=== PATIENT | female | born 1945 | race Caucasian/White ===

== ENCOUNTER → 2016-08-08 | Outpatient (CLI) | payer OTHER, BC ==
[~2016-08-08] MED LIST: ALBU1AER9 INH; ANAS1TAB19 PO; ANAS1TAB6 PO; BENZ-57 PO; CALC1CHW71 PO; CLR10 PO; FLUO0.05 TOP; HYDR0.75 PO; LEVO25TA PO; LEVO25TA5 PO; LEVO50TA6 PO; OYST500T47 PO; TRIA0.1C20 TOP
--- NOTE | 2016-08-08 16:02 | DIAGNOSTIC IMAGING REPORT ---
CHEST 2 VIEWS ROUTINE CLINICAL HISTORY: Cough variant asthma. COMPARISON STUDY: Chest radiograph September 12, 2014. FINDINGS: No pneumothorax or pleural effusion is present. There is no consolidation or evidence of pulmonary edema. Cardiomediastinal silhouette is normal. Left breast clips are incidentally noted. IMPRESSION: No acute cardiopulmonary findings. Electronically signed by: Shawn Markham M.D. 08/08/2016 4:00 PM Dictated Date/Time: 08/08/2016 3:59 PM
== END | disposition home or self-care (01) ==
LOC: C.RADBC 15:38
PROVIDERS: ATTEND Internal Medicine
DX: J45.991 Cough variant asthma (principal); E03.9 Hypothyroidism, unspecified

== ENCOUNTER → 2017-03-09 | Outpatient (CLI) | payer OTHER, BC | END | disposition home or self-care (01) | LOC: C.MAMM 15:23 | PROVIDERS: ATTEND Nurse Practitioner Family | DX: M85.851 Other specified disorders of bone density and structure, right thigh (principal); M85.852 Other specified disorders of bone density and structure, left thigh; M85.88 Other specified disorders of bone density and structure, other site; C50.912 Malignant neoplasm of unspecified site of left female breast ==

== ENCOUNTER → 2017-03-18 | Day surgery (SDC) | payer OTHER, BC ==
[2017-03-09 08:34] VITALS: Ht 167.6 cm; Wt 73.6 kg
[~2017-03-18] VITALS: Ht 167.6 cm; Wt 73.6 kg
[~2017-03-18] MED LIST changes: +LIDOCAINE HCL 2% 2 ML VIAL (20MG/ML) ONE; +PROPOFOL IV EMULSION 10 MG/ML 20 ML VIAL IV ONE; +SODIUM CHLORIDE 0.9% 500ML 500 ML IV ONE
--- NOTE | 2017-03-18 12:41 | Endo History and Physical ---
History & Physical Date of Service: Mar 18, 2017. Chief Complaint: Screening Referring Physician: Dr. Polo History of Present Illness 71 yo CF who presents for screening colonoscopy. Past Medical History Osteoporosis, Asthma, Cancer, High Cholesterol, Hypertension, Thyroid Disease, Chronic Steroid Use Past Surgical History Hx Cardiac Surgery: No Hx Internal Defibrillator: No Hx Pacemaker: No Hx Abdominal Surgery: Yes (TUBAL LIGATION, HYSTERECTOMY) Hx of Implantable Prosthesis: No Hx Post-Op Nausea and Vomiting: No Hx Cancer Surgery: Yes (LEFT LUMPECTOMY) Hx Thoracic Surgery: No Hx Orthopedic: No Hx Urinary Tract Surgery: Yes (D&C,laparoscopy) Family History Polyp Social History Smoking Status: Never Smoker Hx Substance Use: No Hx Alcohol Use: No Allergies Coded Allergies: Milk Protein Extract (Unverified Allergy, Severe, SHORTNESS OF BREATH, ) cough, increased mucus, and loss of voice Salmeterol (Unverified Allergy, Severe, SHORTNESS OF BREATH, 03/09/17) cough, increased mucus, and loss of voice Adhesives (Verified Allergy, Unknown, REDNESS,RASH-WITH BANDAIDS-CAN USE RUBBER BANDS, BLOW UP BAL, 03/09/17) Molds & Smuts (Verified Allergy, Unknown, ASTHMA SYMPTOMS, 03/09/17) Fluticasone (Unverified Adverse Reaction, Intermediate, SHORTNESS OF BREATH, 03/09/17) cough, loss of voice, increased mucus Uncoded Allergies: PERFUMES (Allergy, Unknown, ASTHMA SYMPTOMS, 08/16/14) Current Medications Reported Home Medications Medications Dose Route/Sig Max Daily Dose Days Date Category Anastrozole 1 Mg Tab 1 Tab PO QAM 90 03/09/17 Reported Levothyroxine Sodium 50 Mcg Tab 1 Tab PO Q2D 90 03/09/17 Reported Levothyroxine Sodium 25 Mcg Tab 1 Tab PO Q2D 90 03/09/17 Reported Calcium Chews (Calcium Carbonate-Cholecalcife) 1 Chw Chw 2 Dose PO QPM 03/09/17 Reported Lidex 0.05% (Fluocinonide) Cr 1 Appln TOP BID PRN 10 06/14/15 Reported Proair Hfa (Albuterol Sulfate) 108 Mcg/ Aer 2 Puffs INH Q4H PRN 08/16/14 Reported Vital Signs Weight (Kilograms): 73.64 Height (Feet): 5 Height (Inches): 6 Physical Exam General Appearance: WD/WN, no apparent distress Respiratory/Chest: Auscultation: breath sounds normal Cardiovascular: Heart Auscultation: RRR Abdomen: Bowel Sounds: normal Inspection & Palpation: soft, non-distended, no tenderness, guarding & rebound Assessment and Plan Assessment: 71 yo CF who presents for screening colonoscopy. Plan: Proceed with colonoscopy.
[2017-03-18 14:10] VITALS: BP 119/51; PULSE 63; O2SAT 100
--- NOTE | 2017-03-18 14:13 | Anesthesiology Progress Note ---
Anesthesia Post Op Note Date & Time Mar 18, 2017 at 14:13 Vital Signs Pain Intensity: 0 Vital Signs Past 12 Hours Date Time Temp Pulse Resp B/P (MAP) Pulse Ox O2 Delivery O2 Flow Rate FiO2 03/18/17 14:10 63 16 119/51 (73) 100 Room Air 03/18/17 13:55 64 16 118/52 (74) 98 Room Air 03/18/17 13:40 69 16 112/48 (69) 97 Room Air 03/18/17 12:55 36.9 71 18 152/73 (99) 96 Room Air Notes Mental Status: alert / awake / arousable, participated in evaluation Pt Amnestic to Procedure: Yes Nausea / Vomiting: adequately controlled Pain: adequately controlled Airway Patency, RR, SpO2: stable & adequate BP & HR: stable & adequate Hydration State: stable & adequate Anesthetic Complications: no major complications apparent
--- NOTE | 2017-03-18 14:34 | Discharge Instructions ---
Endoscopy Patient Instructions Date / Procedure(s) Performed Mar 18, 2017. Colonoscopy Allergy Information Coded Allergies: Milk Protein Extract (Verified Allergy, Severe, SHORTNESS OF BREATH, ) cough, increased mucus, and loss of voice Salmeterol (Verified Allergy, Severe, SHORTNESS OF BREATH, 03/18/17) cough, increased mucus, and loss of voice Adhesives (Verified Allergy, Unknown, REDNESS,RASH-WITH BANDAIDS-CAN USE RUBBER BANDS, BLOW UP BAL, 03/18/17) Molds & Smuts (Verified Allergy, Unknown, ASTHMA SYMPTOMS, 03/18/17) Fluticasone (Verified Adverse Reaction, Intermediate, SHORTNESS OF BREATH , 03/18/17) cough, loss of voice, increased mucus Uncoded Allergies: PERFUMES (Allergy, Unknown, ASTHMA SYMPTOMS, 08/16/14) Discharge Date / Findings Mar 18, 2017. Diverticulosis Internal hemorrhoids Colon polyp Rectal polyps Medication Instructions OK to resume all medications today as prescribed Reported Home Medications Medications Dose Route/Sig Max Daily Dose Days Date Category Hydromet (Hydrocodone Bit/Homatropine Methylb) 1 Ml Syrp 5 Ml PO QID PRN 9 03/18/17 Reported Tessalon Perles (Benzonatate) 200 Mg Cap 200 Mg PO TID PRN 03/18/17 Reported Claritin (Loratadine) 10 Mg Tab 10 Mg PO DAILY 03/18/17 Reported Anastrozole 1 Mg Tab 1 Tab PO QAM 90 03/09/17 Reported Levothyroxine Sodium 50 Mcg Tab 1 Tab PO Q2D 90 03/09/17 Reported Levothyroxine Sodium 25 Mcg Tab 1 Tab PO Q2D 90 03/09/17 Reported Calcium Chews (Calcium Carbonate-Cholecalcife) 1 Chw Chw 2 Dose PO QPM 03/09/17 Reported Lidex 0.05% (Fluocinonide) Cr 1 Appln TOP BID PRN 10 06/14/15 Reported Proair Hfa (Albuterol Sulfate) 108 Mcg/ Aer 2 Puffs INH Q4H PRN 08/16/14 Reported Provider Instructions Activity Restrictions - No exercising or heavy lifting for 24 hours. - Do not drink alcohol the day of the procedure. - Do not drive a car or operate machinery until the day after the procedure. - Do not make any important decisions or sign important papers in 24 hours after the procedure. Following Day: - Return to full activity which may include returning to work/school. Diet Start your diet with liquids and light foods (jello, soup, juice, toast). Then eat your usual diet if not nauseated. Treatment For Common After Affects For mild abdominal pain, bloating, or excessive gas: - Rest - Eat lightly - Lie on right side Follow-Up Information Follow-up with DR. MAXIMILIAN BAEZ as scheduled Anesthesia Information What You Should Know You have had a procedure that required some medicine to reduce anxiety and discomfort. This treatment is called moderate sedation. After receiving the treatment, you may be sleepy, but you will be able to breathe on your own. The effects of the treatment may last for several hours. Follow these instructions along with Activity/Diet recommendations noted above: * Do NOT do anything where dizziness or clumsiness would be dangerous. * Rest quietly at home today, then you can be up and about tomorrow. * Have a responsible person stay with you the rest of today. * You may have had an I.V. today. If so, you may take the dressing off later today. Recommendations Call your doctor if: * Trouble breathing * Continuous vomiting for more than 24 hours * Temperature above 101 degrees * Severe abdominal pain or bloating * Pain not relieved by pain medicine ordered * There is increased drainage or redness from any incision * A large amount of rectal bleeding greater than 2-3 tablespoons. (If you had a polyp/s removed or have hemorrhoids, a small amount of blood - from the rectum is to be expected.) * You have any unanswered questions or concerns. IN THE EVENT OF A SERIOUS EMERGENCY, GO TO THE NEAREST EMERGENCY ROOM Your discharge instructions were prepared by provider Ethan Andrade. Patient Instructions Signature Page Kate Arteaga Patient (or Guardian) Signature/Date: I have read and understand the instructions given to me by my caregivers. Caregiver/RN/Doctor Signature/Date: The above-named patient and/or guardian has received patient instructions on this date. + Original Patient Signature Page (only) stays with chart. Please make copy for patient.
--- NOTE | 2017-03-19 00:15 | GI REPORT ---
Procedure Date: 03/18/2017 12:47 PM Procedure: Colonoscopy Indications: Screening for colorectal malignant neoplasm Medicines: Monitored Anesthesia Care Complications: No immediate complications. Estimated Blood Loss: Estimated blood loss: none. Procedure: Pre-Anesthesia Assessment: - Prior to the procedure, a History and Physical was performed, and patient medications and allergies were reviewed. The patient's tolerance of previous anesthesia was also reviewed. The risks and benefits of the procedure and the sedation options and risks were discussed with the patient. All questions were answered, and informed consent was obtained. Prior Anticoagulants: The patient has taken no previous anticoagulant or antiplatelet agents. ASA Grade Assessment: II - A patient with mild systemic disease. After reviewing the risks and benefits, the patient was deemed in satisfactory condition to undergo the procedure. After I obtained informed consent, the scope was passed under direct vision. Throughout the procedure, the patient's blood pressure, pulse, and oxygen saturations were monitored continuously. The Scope was introduced through the anus and advanced to the terminal ileum. The colonoscopy was performed without difficulty. The patient tolerated the procedure well. The quality of the bowel preparation was good. The terminal ileum, ileocecal valve, appendiceal orifice, and rectum were photographed. Findings: Three sessile polyps were found in the rectum and in the descending colon. The polyps were 4 to 6 mm in size. These polyps were removed with a hot snare. Resection and retrieval were complete. Multiple medium-mouthed diverticula were found in the sigmoid colon. Non-bleeding internal hemorrhoids were found during retroflexion. The hemorrhoids were small. Impression: - Three 4 to 6 mm polyps in the rectum and in the descending colon, removed with a hot snare. Resected and retrieved. - Diverticulosis in the sigmoid colon. - Non-bleeding internal hemorrhoids. Recommendation: - Resume previous diet. - Continue present medications. - Repeat colonoscopy for surveillance based on pathology results. - Return to primary care physician as previously scheduled. Ethan Andrade, DO 03/18/2017 2:28:38 PM This report has been signed electronically. Note Initiated On: 03/18/2017 12:47 PM I attest to the content of the Intraoperative Record and orders documented therein, exceptions below
== END | disposition home or self-care (01) ==
LOC: C.GI 12:19
PROVIDERS: ATTEND Internal Medicine
DX: Z12.11 Encounter for screening for malignant neoplasm of colon (principal); D12.4 Benign neoplasm of descending colon; D12.8 Benign neoplasm of rectum; K57.30 Diverticulosis of large intestine without perforation or abscess without bleeding; K64.8 Other hemorrhoids; J45.909 Unspecified asthma, uncomplicated; E78.00 Pure hypercholesterolemia, unspecified; M81.0 Age-related osteoporosis without current pathological fracture; I10 Essential (primary) hypertension; E07.9 Disorder of thyroid, unspecified; Z79.52 Long term (current) use of systemic steroids; Z79.899 Other long term (current) drug therapy

== ENCOUNTER → 2017-07-02 | Outpatient (CLI) | payer OTHER, BC ==
[2016-05-29 13:25] VITALS: BP 151/74; PULSE 73
[~2017-07-02] MED LIST changes: -ANAS1TAB19 PO; -ANAS1TAB6 PO; +ANAS1TAB7 PO; -BENZ-57 PO; +BENZ200C59 PO; -LEVO25TA PO; -LIDOCAINE HCL 2% 2 ML VIAL (20MG/ML) ONE; -OYST500T47 PO; -PROPOFOL IV EMULSION 10 MG/ML 20 ML VIAL IV ONE; -SODIUM CHLORIDE 0.9% 500ML 500 ML IV ONE; -TRIA0.1C20 TOP
[2017-07-02 13:48] VITALS: BP 133/75; PULSE 72; TEMP 36.9; O2SAT 98
--- NOTE | 2017-07-02 15:08 | Radiation Oncology Follow-Up ---
Radiation Oncology Follow-Up Date of Visit Jul 02, 2017. Reason For Visit Annual follow-up Radiation Completion Date 10/06/14 Diagnosis (1) Breast cancer Status: Resolved Onset Date: 08/21/2014 Permanent Comment: Status post lumpectomy and sentinel lymph node biopsy 2014 Stage pT1a pTN0 M0 estrogen receptor positive. Progesterone receptor negative, HER-2/dana negative Oncotype DX score of 19 Last Edited By: Sabine Fortune on Nov 09, 2014 17:13 Interim History She's been doing well over this past year. She denies any changes to her breast. She is noted no masses or tenderness no change of the axilla. She has had no swelling of her arm. Previously she had a jagging discomfort. This has resolved completely. She is up-to-date on mammography. She continues on Arimidex. She denies side effects. Allergies Coded Allergies: Milk Protein Extract (Verified Allergy, Severe, SHORTNESS OF BREATH, ) cough, increased mucus, and loss of voice Salmeterol (Verified Allergy, Severe, SHORTNESS OF BREATH, 03/18/17) cough, increased mucus, and loss of voice Adhesives (Verified Allergy, Unknown, REDNESS,RASH-WITH BANDAIDS-CAN USE RUBBER BANDS, BLOW UP BAL, 03/18/17) Molds & Smuts (Verified Allergy, Unknown, ASTHMA SYMPTOMS, 03/18/17) Fluticasone (Verified Adverse Reaction, Intermediate, SHORTNESS OF BREATH , 03/18/17) cough, loss of voice, increased mucus Uncoded Allergies: PERFUMES (Allergy, Unknown, ASTHMA SYMPTOMS, 08/16/14) Home Medications Scheduled Anastrozole (Anastrozole), 1 TAB PO QAM Calcium Carbonate-Cholecalcife (Calcium Chews), 2 DOSE PO QPM Levothyroxine Sodium (Levothyroxine Sodium), 1 TAB PO Q2D Levothyroxine Sodium (Levothyroxine Sodium), 1 TAB PO Q2D Loratadine (Claritin), 10 MG PO DAILY Scheduled PRN Albuterol Sulfate (Proair Hfa), 2 PUFFS INH Q4H PRN for PRN Benzonatate (Tessalon Perles), 200 MG PO TID PRN for Cough Fluocinonide 0.05% (Lidex 0.05%), 1 APPLN TOP BID PRN for Itching Review of Systems Gastrointestinal: Symptoms: WNL GI Comments: sl constipation Oral: Symptoms: No Problems Respiratory: Symptoms: Dry Cough Urinary: Symptoms: WNL Skin: Symptoms: No Problems Other Skin Symptoms: noted right breast larger than right noted between breasts redness Breast: Right Upper Arm Measurement: 31.5 Right Mid Arm Measurement: 27.0 Right Wrist Measurement: 16.8 Left Upper Arm Measurement: 30.8 Left Mid Arm Measurement: 25.5 Left Wrist Measurement: 17.0 Arm Dominence: Right Patient Cosmetic Evaluation: Good Staff Cosmetic Evalaluation: Good Cosmetic Comments: right breast larger Physical Exam Vital Signs Date Time Temp Pulse Resp B/P (MAP) Pulse Ox O2 Delivery O2 Flow Rate FiO2 07/02/17 13:48 36.9 72 20 133/75 98 Fatigue: None General Appearance: no apparent distress Eyes: normal inspection, EOMI ENT: normal ENT inspection, hearing grossly normal Neck: no adenopathy, thyroid normal Respiratory/Chest: lungs clear, no respiratory distress, no accessory muscle use Breast: Breast examination reveals well-healed incisions of the left breast. There are no masses or tenderness and no axillary adenopathy. She has no skin retractions or nipple changes. Using the [place] score cosmesis she has a excellent outcome. The right breast showed no masses or tenderness no axillary adenopathy. Cardiovascular: regular rate, rhythm, no gallop, + systolic murmur (1/6 murmur heard best at the aortic area.) Abdomen: non tender, soft, no organomegaly Extremities: no pedal edema Neurologic/Psychiatric: no motor/sensory deficits, alert, normal mood/affect Skin: warm/dry Lymphatic: + pertinent finding (thinning of the skin and team angiomas) Pain Management Patient Reports Pain: No Side: Left Pain Location: None Patient Preferred Pain Scale: 0 - 10 Initial Pain Intensity: 0.0 Pain Management Plan She does not have pain therefore requires no pain management. Imaging Imaging Studies: were reviewed, and pertinent findings noted below Imaging Comments Patient: ESTEFANIA AVILA Med Rec: [id number] Address[address]: [address] Address[address]: [address] Acct ID: [id number] Date: 1945 Sex: F Ref Phy: Jordan Phy: Sabine Fortune PA-C Donna Phy: Ron Polo M.D. Inter Phy: Maria Isabel Chris MD [facility] Zip: [place] [address] SC: Cathy.MAMM Report #: [id number] [facility]idential Care Facility Manager: CHRISTIANNik Diagnosis: 6 MO FU-ENSURE LEFT BREAST CA STABILITY Service Date: 07/11/16 MNE: [id number] Ordering Dr: Sabine Fortune PA-C CC: Sabine Fortune PA-C CONF: DICTATED BY: Maria Isabel Chris MD MAMMOGRAPHY REPORT BILATERAL DIGITAL DIAGNOSTIC MAMMOGRAM TOMOSYNTHESIS WITH CAD AND TARGETED RIGHT ULTRASOUND: 07/11/2016 CLINICAL HISTORY: History of left breast cancer status post lumpectomy July 2014. Here for interval follow-up. The patient reports a new palpable lump in her right axilla for approximately 2 weeks. TECHNIQUE: Breast tomosynthesis in addition to standard 2D mammography was performed. Current study was also evaluated with a Computer Aided Detection (CAD ) system. Bilateral CC and MLO 2-D and tomosynthesis views and spot magnification left CC and ML views were obtained. COMPARISON: Comparison is made to exams dated: 12/19/2015 mammogram, 05/31/2015 ultrasound, 05/31/2015 mammogram, 01/17/2015 mammogram, 07/18/2014 mammogram, and 02/17/2012 mammogram - [facility]. BREAST COMPOSITION: There are scattered areas of fibroglandular density in both breasts. FINDINGS: Again noted are post surgical changes in the left 12:00 breast from prior lumpectomy, including density, architecture distortion, surgical clips, and benign coarse dystrophic and sutural calcifications at the lumpectomy bed. A fat density round 11 mm mass is also noted at the lumpectomy bed, consistent with benign fat necrosis. Spot magnification views of the lumpectomy bed demonstrate no suspicious masses or clusters of microcalcifications. The remainder of both breasts are stable compared to prior exams, without suspicious masses, calcifications, or areas of architectural distortion noted. Scattered bilateral benign-appearing calcifications are again noted. Targeted ultrasound was performed of the area of the palpable lump pointed out by the patient in the right axilla. Sonographically normal tissue is seen in this region, without evidence of mass or other suspicious sonographic abnormality. IMPRESSION: ACR BI-RADS CATEGORY 2: BENIGN, TARGETED ULTRASOUND ACR BI-RADS CATEGORY 2: BENIGN 1. Expected post surgical changes in the left breast from prior lumpectomy, without mammographic evidence of malignancy in either breast. A 1 year screening mammogram is recommended. 2. No suspicious sonographic abnormality at the site of the palpable right axillary lump. Recommend clinical follow-up. The patient has been verbally notified of the results. Approximately 10% of breast cancers are not detected with mammography. A negative mammographic report should not delay biopsy if a clinically suggestive mass is present. Maria Isabel Chris M.D. ah/:07/11/2016 09:25:34 Assessment & Plan Plan: Continue with annual mammography. She has a mammogram scheduled for next week. She was concerned about the changes she has noticed of her skin. We discussed that the thinning of the skin is due to lack of estrogen. This is because of her age and may be also related to the Arimidex decreasing estrogen. She'll use skin moisturizers. We also discussed the multiple hemangiomas. She has discuss these with her office secretary. The physician reviewed with her that these are genetic and she will likely continue to have them and develop more of them over time. She'll continue regular follow-up with medical oncology. We asked her to return to our office in 1 year. She may call if she has any questions or concerns in the interim. Total Time In Follow-Up I spent 20 minutes the need to the patient performing examination. I spent 15 minutes performing examination in completing this note. Copy To Josh Salgado D.O.; Ron Polo M.D. Problem Qualifiers (1) Breast cancer: Breast location: upper inner quadrant of breast Estrogen receptor status: positive Patient sex: female Laterality: left Qualified Codes: C50.212 - Malignant neoplasm of upper-inner quadrant of left female breast; Z17.0 - Estrogen receptor positive status [ER+]
== END | disposition home or self-care (01) ==
LOC: C.ONC 13:43
PROVIDERS: ATTEND Physician Assistant Medical
DX: Z08 Encounter for follow-up examination after completed treatment for malignant neoplasm (principal); Z92.3 Personal history of irradiation; Z85.3 Personal history of malignant neoplasm of breast

== ENCOUNTER → 2017-07-13 | Outpatient (CLI) | payer OTHER, BC ==
[~2017-07-13] MED LIST changes: +ANAS1TAB6 PO; -ANAS1TAB7 PO; -HYDR0.75 PO
--- NOTE | 2017-07-13 15:09 | MAMMOGRAPHY REPORT ---
BILATERAL DIGITAL DIAGNOSTIC MAMMOGRAM TOMOSYNTHESIS WITH CAD AND TARGETED RIGHT ULTRASOUND: 07/13/20 CLINICAL HISTORY: 71-year-old woman with a personal history of left breast cancer status post breast conserving treatment presents for diagnostic evaluation of both breasts, to reassess postsurgical dalton nges in the left breast and routine annual mammography of the right breast. TECHNIQUE: Bilateral breast tomosynthesis in addition to standard 2D mammography was performed. Spot magnification left CC and ML views were also obtained. Current study was also evaluated with a Comp uter Aided Detection (CAD) system. COMPARISON: Comparison is made to exams dated: 07/11/2016 mammogram, 07/11/2016 ultrasound, 6 mammogram, 05/31/2015 mammogram, 01/17/2015 mammogram, and 07/18/2014 mammogram - [facility]. BREAST COMPOSITION: There are scattered areas of fibroglandular density in both breasts. FINDINGS: There is expected architectural distortion, asymmetry oil cyst, surgical clips and sutural calcification in the 12:00 middle to posterior left breast, at the site of prior lumpectomy. There a re scattered rodlike and benign rim calcifications. No suspicious mass, developing asymmetry, unexpe cted architectural distortion or cluster of new, suspicious microcalcifications is seen in the left b reast. There are 2 adjacent nodular asymmetries in the lateral right breast, measuring 4 x 7 mm in conglomer ate (CC tomosynthesis slice 27/80). No associated architectural distortion or microcalcification. T hese are thought to project just inferior to the posterior nipple line on the MLO view. There are be nign rodlike and rim calcifications scattered throughout the right breast. No focal area of architec tural distortion or suspicious microcavitation calcification. Targeted ultrasound was performed in the lateral right breast to assess for the newly visualized nodu lar asymmetries. In the 9:00 axis, 4 cm from the nipple, there are 2 adjacent anechoic benign simple cysts, measuring approximately 4.2 x 2.3 x 3.3 mm in conglomerate. This is thought to correlate wit h the mammographic finding and represent benign cysts. There is no evidence of a suspicious solid ma ss or sonographic evidence of malignancy. IMPRESSION: ACR BI-RADS CATEGORY 2: BENIGN, TARGETED ULTRASOUND ACR BI-RADS CATEGORY 2: BENIGN 1. Newly visualized adjacent 4 x 7 mm nodular asymmetries in the lateral right breast are thought to correlate with benign simple cysts on ultrasound, seen in the 9:00 axis. There is no mammographic o r targeted sonographic evidence of malignancy in the right breast. 2. Expected posttreatment changes in the left breast, without mammographic evidence of malignancy. Recommend bilateral mammography in one year and I will leave it up to the patient and her referring p hysician if she wishes to remain diagnostic to reassess posttreatment changes, or can continue forwar d with routine screening. Approximately 10% of breast cancers are not detected with mammography. A negative mammographic report should not delay biopsy if a clinically suggestive mass is present. Arlyn Khan M.D. ay/:07/13/2017 10:06:39 Oysterman: Ned MOSLEY(R)(Luz Maria), [facility] letter sent: Normal 1/2 BI-RADS Code: ACR BI-RADS Category 2: Benign Ultrasound BI-RADS: ACR BI-RADS Category 2: Benign
== END | disposition home or self-care (01) ==
LOC: C.MAMM 09:23
PROVIDERS: ATTEND Nurse Practitioner Family
DX: R92.8 Other abnormal and inconclusive findings on diagnostic imaging of breast (principal); N64.89 Other specified disorders of breast

== ENCOUNTER → 2018-02-22 | Outpatient (CLI) | payer OTHER, BC ==
[~2018-02-22] MED LIST changes: -ANAS1TAB6 PO; +ANAS1TAB7 PO
== END | disposition home or self-care (01) ==
LOC: C.LAB1850 13:36
PROVIDERS: ATTEND Internal Medicine
DX: R03.0 Elevated blood-pressure reading, without diagnosis of hypertension (principal); E78.5 Hyperlipidemia, unspecified; E04.1 Nontoxic single thyroid nodule; E03.9 Hypothyroidism, unspecified; E06.3 Autoimmune thyroiditis; L40.9 Psoriasis, unspecified

== ENCOUNTER 2025-02-24 12:25 | Observation (INO) ==
--- NOTE | 2025-02-24 12:53 | Emergency Department Note ---
Impression & Plan Weakness on left side of face, Seizure-like activity, Carotid artery narrowing ED Provider Note Name: ESTEFANIA AVILA Age: 79 Sex: Female Arrives Via: Walk-In Informant: Patient (poor historian), , daughter ED Provider: Ruy Douglas MD Chief Complaint: Weakness Impression: As per impressions above Medical Decision Makin-year-old female with a history of dementia but no previous history of stroke arrives for evaluation of sudden onset left facial weakness as well as some shaking of her right upper arm and questionable weakness. Arrives via private vehicle and stroke alert immediately called by triage. I met patient in CT. She is able to ambulate from the chair to the CT bed. Does have some left facial weakness but is easily overcome by voluntary motion. Thus relatively low NIH score on arrival. CT Noncon of the head read by me informally revealed no evidence of intracranial hemorrhage. I discussed this with teleneurologist and my significant concerns that this patient would be a poor candidate for TNKase but alone her symptoms do not really match up well with stroke. He further evaluated the patient and did agree with this. Suggested consideration of possible seizure-like activity given the shaking of the arm earlier. . On repeat evaluation patient looks well she is much more talkative she is interactive. She was given 1 g of IV Keppra along with some p.o. Ativan. Blood pressure was relatively high and given the increasing blood pressure she was given a very small dose of IV labetalol which she tolerated well. Hospitalist was consulted for further management and evaluated. At time of hospitalization I do not feel the patient has evidence of sepsis. She is not in any distress Triage/Nursing Notes reviewed by Me External Chart Review by me: PCP note from 11/11/2019 Maikol was reviewed by me for past medical history Differential:Infection, hypoglycemia, electrolyte abnormalities, overdose, toxicologic, cardiac sources, intracerebral event, neurologic, trauma, as well as other pathologies. Vital Signs: reviewed and remarkable for no significant abnormalities Interventions: Aspirin p.o., labetalol IV Labs:ED labs Reviewed by me and remarkable for no significant abnormalities Imaging:CT head without contrast as per my informal interpretation reveals no intracranial hemorrhage or mass effect. Radiologist concurs. CT angiography of the head and neck reveals no occlusion however there is moderate right carotid stenosis as per radiologist EKG:As per my interpretation. Indication strokelike symptoms. Normal sinus rhythm at 74 bpm QTc of 490. There is left bundle branch block. There is no ectopy nor ischemia. When compared to EKG of December no significant change. Cardiac/Tele Monitoring: Cardiac Monitoring: An Order was placed for continuous cardiac monitoring. The monitor shows a rate of 70 with a normal sinus rhythm. Consults:Stroke neurologist Dr. Anton reviewed case over phone as well as evaluated patient over monitor agrees with holding off TNKase as well as proceeding with giving Keppra for possible seizure-like activity. Reviewed with Dr. Ort[facility] hospitalist who will further evaluate patient Plan: Disposition:Hospitalization. Condition: Fair History of Present Illness: 79-year-old female arrives for evaluation of weakness. Patient at 11:00 started complaining of left facial tingling. She was noted to have left facial weakness and then right arm and leg weakness. The right lower arm and leg weakness seems to have improved however patient continues to have facial weakness and worsening confusion than her baseline dementia. Patient without any falls, trauma, injuries. She is on no blood thinners. No recent fevers, chills or other concerning signs or symptoms. Family states she was her typical self up until this morning at 11 AM. Past Medical History:See Below Home Medications:See Below Allergies:See Below Vitals:Blood Pressure: 129/71, Pulse 67, RR 18, T 36.6C, O2 96% on RA Physical Exam: GENERAL: Patient is tired and mildly confused appearing and in no acute distress. RESPIRATORY: No dyspnea. Clear to auscultation and equal bilaterally. CARDIOVASCULAR: Regular rate and rhythm.No murmur appreciated. GASTROINTESTINAL: Abdomen soft, non-tender, no peritonitis. EXTREMITIES: Normal motion all extremities, no cyanosis, no edema. NEUROLOGIC: Patient is a bit confused with some slow responses. She has a mild left facial weakness. Does not do a great job of following commands though does seem to be moving all extremities. SKIN: No rash, no jaundice, no diaphoresis. GCS: 15 ED Course: Times/Reassessments: Multiple repeat evaluations. Patient actually seems a bit more with it and repetitive evaluations. She is moving all extremities without difficulty. Still has mild left facial weakness. Critical Care: I have personally spent 45 minutes of critical care time in the direct management of this patient. Acute neurologic deficits with high concern for possible stroke leading to stroke alert and consideration of thrombolytic and management for possible subclinical seizure, requiring emergent discussion with stroke teleneurologist. This was a life/limb threatening event. This 45 minutes is in excess of all separately billable procedures. Ruy Douglas MD Past Med/Surg History Problem List (Updated 02/24/25 @ 21:20 by Ruy Douglas MD) Carotid artery narrowing (Acute) Seizure-like activity (Acute) Weakness on left side of face (Acute) Hypertensive urgency Stroke-like episode Aortic stenosis Microscopic hematuria History of cancer of left breast S/P RADIATION, LUMPECTOMY Vitamin B12 deficiency Mixed incontinence Dementia CKD (chronic kidney disease) stage 3, GFR 30-59 ml/min Prediabetes History of colon polyps Vitamin D deficiency (Chronic) Tricuspid regurgitation (Acute) does not see cardio Osteopenia, senile (Chronic) hx Mitral regurgitation (Chronic) "unsure, I don't see a volunteer services coordinator" LBBB (left bundle branch block) (Acute) hx; "no pacemaker, and I don't see a volunteer services coordinator" Hypothyroidism (Chronic) Hyperlipidemia (Chronic) History of basal cell carcinoma (Acute) s/p removal of bcc's. Charlie's thyroiditis (Acute) Aortic valve sclerosis (Acute) hx-"unsure, it should be in my chart if I have it" does not follow cardio Medical History Carotid artery bruit Paresthesia of foot, bilateral Solitary thyroid nodule Psoriasis Asthma Left ventricular hypertrophy Asthma Surgical History Hx of vaginal hysterectomy History of cataract surgery History of bilateral tubal ligation History of colonoscopy History of tonsillectomy History of left breast biopsy History of lumpectomy of left breast Family History Unknown FH: CABG (coronary artery bypass surgery) History of heart valve replacement Cancer Grandmother Breast cancer Denies family history of Ovarian cancer Prostate cancer Myocardial infarction Lung cancer Colorectal cancer Social History Smoking Status: Never smoker Second Hand Exposure: Yes; Do You Dip or Chew Tobacco: No; Hx Alcohol Use: No Hx Substance Use: No Preferred Language: Yi Communication Ability: Effective Visual Impairment: Limited Hearing Ability: Normal Oracle Applications Developer Required: No Beliefs That Will Affect Care: None marital status: Current Living Situation: Spouse current occupational status: retired How many Children do You have: 4 Feels Safe at Home: Yes Childhood Exposure to Second-Hand Smoke: Yes Diet: low salt caffeine: Yes Dental Care, Regularly: No Physical Activity Frequency: 3-4 Times per Week Physical Activity Frequency Comment: walks Seatbelt Use: always Sunscreen Use: Yes Do you think of yourself as: straight/heterosexual Allergies Allergies Allergy/AdvReac Type Severity Reaction Status Date / Time salmeterol Allergy Severe SHORTNESS Verified 02/21/25 12:57 OF BREATH Latex, Natural Rubber Allergy Intermediate Redness of Verified 02/21/25 12:57 Skin adhesive Allergy Unknown REDNESS,RASH-WITH Verified 02/21/25 12:57 BANDAIDS-CAN USE RUBBER BANDS, BLOW UP BAL mold Allergy Unknown ASTHMA Verified 02/21/25 12:57 SYMPTOMS fluticasone AdvReac Intermediate SHORTNESS Verified 02/21/25 12:57 OF BREATH PERFUMES Allergy Unknown ASTHMA Uncoded 02/21/25 12:57 SYMPTOMS Home Meds Home Medications Medication Instructions Recorded Confirmed calcium carbonate (Calcium 500) 1,000 mg PO QAM 02/15/19 02/24/25 cyanocobalamin (vitamin B-12) 1,000 mcg PO DAILY 11/10/24 02/24/25 2,500 mcg tablet loratadine 10 mg tablet 10 mg PO DAILY 02/24/25 02/24/25 rosuvastatin 5 mg tablet 5 mg PO .THU,THU,Thursday02/24/25 02/24/25 Previous Rx's Medication Instructions Recorded levothyroxine 50 mcg tablet 50 mcg PO Q2D #45 tabs 01/06/24 memantine 10 mg tablet 10 mg PO BID 90 days #180 tabs 06/30/24 mirabegron 50 mg tablet,extended 50 mg PO DAILY #90 tabs 10/18/24 release 24 hr (Myrbetriq) donepezil 10 mg tablet (Aricept) 10 mg PO HS #90 tabs 11/01/24 levothyroxine 25 mcg tablet 25 mcg PO Q2D #45 tabs 12/27/24 Results & Data (ED) Vital Signs Vital Signs - 24 hr 02/24/25 12:26 02/24/25 13:05 02/24/25 13:06 Temperature 36.6 C Temperature Source Temporal Artery Scan Pulse Rate 67 71 Pulse Rate [Left] Pulse Rate from SpO2 Sensor Respiratory Rate 18 Respiratory Effort / Characteristics Respiratory Depth Respiratory Pattern Blood Pressure 129/71 155/82 H Blood Pressure [Left Arm] Blood Pressure Mean 90 94 Blood Pressure Mean [Left Arm] Blood Pressure Position [Left Arm] Pulse Oximetry 96 Oxygen Delivery Method Sepsis Recent Fever Within 48 Hours No Sepsis New/Unexplained Change in Mental Status N/A Sepsis Action Taken by Nursing No Action Required 02/24/25 13:06 02/24/25 13:06 02/24/25 13:15 Temperature Temperature Source Pulse Rate 74 Pulse Rate [Left] 68 Pulse Rate from SpO2 Sensor Respiratory Rate 13 17 Respiratory Effort / Characteristics Respiratory Depth Respiratory Pattern Blood Pressure 155/82 H Blood Pressure [Left Arm] 207/88 H Blood Pressure Mean 94 Blood Pressure Mean [Left Arm] 127 Blood Pressure Position [Left Arm] Pulse Oximetry 95 97 Oxygen Delivery Method Room Air Sepsis Recent Fever Within 48 Hours Sepsis New/Unexplained Change in Mental Status Sepsis Action Taken by Nursing 02/24/25 13:15 02/24/25 13:16 02/24/25 13:16 Temperature Temperature Source Pulse Rate 66 Pulse Rate [Left] Pulse Rate from SpO2 Sensor 66 Respiratory Rate 17 Respiratory Effort / Characteristics Respiratory Depth Respiratory Pattern Blood Pressure 207/88 H 207/88 H Blood Pressure [Left Arm] Blood Pressure Mean 137 137 Blood Pressure Mean [Left Arm] Blood Pressure Position [Left Arm] Pulse Oximetry 97 Oxygen Delivery Method Sepsis Recent Fever Within 48 Hours Sepsis New/Unexplained Change in Mental Status Sepsis Action Taken by Nursing 02/24/25 13:16 02/24/25 13:21 02/24/25 13:24 Temperature Temperature Source Pulse Rate 65 66 Pulse Rate [Left] Pulse Rate from SpO2 Sensor 65 65 Respiratory Rate 18 16 Respiratory Effort / Characteristics Respiratory Depth Respiratory Pattern Blood Pressure 207/88 H Blood Pressure [Left Arm] Blood Pressure Mean 137 Blood Pressure Mean [Left Arm] Blood Pressure Position [Left Arm] Pulse Oximetry 97 98 Oxygen Delivery Method Sepsis Recent Fever Within 48 Hours Sepsis New/Unexplained Change in Mental Status Sepsis Action Taken by Nursing 02/24/25 13:26 02/24/25 13:26 02/24/25 13:26 Temperature Temperature Source Pulse Rate Pulse Rate [Left] Pulse Rate from SpO2 Sensor Respiratory Rate Respiratory Effort / Characteristics Respiratory Depth Respiratory Pattern Blood Pressure 215/96 H 215/96 H 215/96 H Blood Pressure [Left Arm] Blood Pressure Mean 154 154 154 Blood Pressure Mean [Left Arm] Blood Pressure Position [Left Arm] Pulse Oximetry Oxygen Delivery Method Sepsis Recent Fever Within 48 Hours Sepsis New/Unexplained Change in Mental Status Sepsis Action Taken by Nursing 02/24/25 13:39 02/24/25 13:44 02/24/25 13:45 Temperature Temperature Source Pulse Rate 69 68 Pulse Rate [Left] Pulse Rate from SpO2 Sensor 70 Respiratory Rate 26 H Respiratory Effort / Characteristics Respiratory Depth Respiratory Pattern Blood Pressure 215/96 H 207/89 H Blood Pressure [Left Arm] Blood Pressure Mean 142 Blood Pressure Mean [Left Arm] Blood Pressure Position [Left Arm] Pulse Oximetry 95 Oxygen Delivery Method Sepsis Recent Fever Within 48 Hours Sepsis New/Unexplained Change in Mental Status Sepsis Action Taken by Nursing 02/24/25 13:45 02/24/25 13:48 02/24/25 13:51 Temperature Temperature Source Pulse Rate 64 Pulse Rate [Left] Pulse Rate from SpO2 Sensor 64 Respiratory Rate 18 Respiratory Effort / Characteristics Respiratory Depth Respiratory Pattern Blood Pressure 207/89 H 211/96 H Blood Pressure [Left Arm] Blood Pressure Mean 142 104 Blood Pressure Mean [Left Arm] Blood Pressure Position [Left Arm] Pulse Oximetry 98 Oxygen Delivery Method Sepsis Recent Fever Within 48 Hours Sepsis New/Unexplained Change in Mental Status Sepsis Action Taken by Nursing 02/24/25 13:51 02/24/25 14:04 02/24/25 14:05 Temperature Temperature Source Pulse Rate 59 L 63 Pulse Rate [Left] 63 Pulse Rate from SpO2 Sensor 59 L Respiratory Rate 18 18 Respiratory Effort / Characteristics Non-Labored Spontaneous Respiratory Depth Normal Respiratory Pattern Regular Blood Pressure 212/102 H Blood Pressure [Left Arm] 212/102 H Blood Pressure Mean Blood Pressure Mean [Left Arm] 138 Blood Pressure Position [Left Arm] Lying Pulse Oximetry 96 93 Oxygen Delivery Method Room Air Sepsis Recent Fever Within 48 Hours Sepsis New/Unexplained Change in Mental Status Sepsis Action Taken by Nursing 02/24/25 14:06 02/24/25 14:12 02/24/25 14:31 Temperature Temperature Source Pulse Rate 63 Pulse Rate [Left] Pulse Rate from SpO2 Sensor 62 62 Respiratory Rate 18 23 Respiratory Effort / Characteristics Respiratory Depth Respiratory Pattern Blood Pressure 178/88 H Blood Pressure [Left Arm] Blood Pressure Mean 114 Blood Pressure Mean [Left Arm] Blood Pressure Position [Left Arm] Pulse Oximetry 95 98 Oxygen Delivery Method Sepsis Recent Fever Within 48 Hours Sepsis New/Unexplained Change in Mental Status Sepsis Action Taken by Nursing Laboratory Data 02/24/25 12:56 02/24/25 12:56 Lab Results 02/24/25 02/24/25 Range/Units 12:56 12:57 WBC 6.00 (4.8-10.8) K/ul RBC 4.73 (4.20-5.40) M/uL Hgb 13.3 (12.0-16.0) g/dl POC Hgb 13.3 (12.0-16.0) g/dl Hct 40.8 (37.0-47.0) % POC Hct 39 (37-47) % MCV 86.3 (80.0-100.0) fL MCH 28.1 (25.0-34.0) pg MCHC 32.6 (32.0-36.0) g/dL RDW Std Deviation 42.8 (36.4-46.3) fL RDW Coeff of Ivette 13.7 (11.5-14.5) % Plt Count 207 (130-400) K/uL MPV 10.7 (9.4-12.4) fL Immature Gran % (Auto) 0.2 % Neut % (Auto) 69.0 % Lymph % (Auto) 19.8 % Wise % (Auto) 8.8 % Eos % (Auto) 1.5 % Baso % (Auto) 0.7 % Neut # (Auto) 4.14 (1.40-6.50) K/uL Lymph # (Auto) 1.19 L (1.20-3.40) K/uL Wise # (Auto) 0.53 (0.11-0.59) K/uL Eos # (Auto) 0.09 (0.00-0.50) K/uL Baso # (Auto) 0.04 (0.00-0.20) K/uL Immature Gran # (Auto) 0.01 (0.01-0.20) K/uL PT 10.8 (9.0-12.0) Seconds INR 1.0 (0.9-1.1) APTT 27 (21-31) Seconds PTT Ratio 1.0 POC Sodium 144 (135-144) mmol/L Sodium 143 (136-145) mmol/L POC Potassium 3.8 (3.3-5.0) mmol/L Potassium 3.9 (3.5-5.1) mmol/L POC Chloride 105 (101-112) mmol/L Chloride 108 H (98-107) mmol/L Carbon Dioxide 29 (21-32) mmol/L POC Total CO2 28 (24-31) mmol/L Anion Gap 6 (3-11) POC Anion Gap 15.0 L (16-25) mmol/L POC BUN 23 H (7-18) mg/dl BUN 22 (6-23) mg/dl Creatinine 1.02 (0.6-1.2) mg/dl POC Creatinine 1.1 (0.6-1.3) mg/dl Est Cr Clr Drug Dosing 41.2 ml/min eGFR 55.61 BUN/Creatinine Ratio 21.6 H (10-20) Glucose 89 (70-99(Fasting)) mg/dl POC Glucose (other) 86 (70-99) mg/dl Calcium 9.1 (8.6-10.3) mg/dl POC Ioniz Calcium Landen 1.18 (1.12-1.32) mmol/l Magnesium 2.1 (1.7-2.4) mg/dl Total Bilirubin 0.6 (0.2-1.0) mg/dl AST 17 (13-39) U/L ALT 11 (7-52) U/L Alkaline Phosphatase 74 (34-104) U/L Troponin I High Sens 3.7 (0-14) pg/ml Total Protein 6.5 (6.0-8.3) gm/dl Albumin 3.9 (3.4-5.0) gm/dl Globulin 2.6 (2.5-4.0) gm/dl Albumin/Globulin Ratio 1.5 (0.9-2) Administered Medications Donepezil HCl (Donepezil Hcl 10 Mg Tab) 10 mg PO HS JAYJAY Stop: 03/26/25 20:59 Last Admin: 02/24/25 20:25 Dose: 10 mg Documented By: MG Memantine (Memantine Hcl 10 Mg Tab) 10 mg PO BID JAYJAY Stop: 03/26/25 20:59 Last Admin: 02/24/25 20:25 Dose: 10 mg Documented By: MG Discontinued Medications Aspirin (Aspirin 81 Mg Chew) 324 mg PO NOW STA Stop: 02/24/25 13:35 Last Admin: 02/24/25 13:44 Dose: 324 mg Documented By: JACEY Ioversol (Optiray 320 125ml) 118 ml IV ONCE ONE Stop: 02/24/25 12:58 Last Admin: 02/24/25 12:57 Dose: 118 ml Documented By: ROSEMARYK Labetalol HCl (Labetalol Hcl Iv 5 Mg/Ml 20ml) 5 mg IV NOW STA Stop: 02/24/25 13:35 Last Admin: 02/24/25 13:44 Dose: 5 mg Documented By: JACEY Levetiracetam (Levetiracetam 500 Mg/5 Ml Vial) 1,000 mg IV NOW STA Stop: 02/24/25 13:44 Last Admin: 02/24/25 13:48 Dose: 1,000 mg Documented By: JACEY Levothyroxine Sodium (Levothyroxine Sodium 25 Mcg Tablet) 25 mcg PO Q2D JAYJAY Stop: 03/26/25 16:56 Last Admin: 02/24/25 18:06 Dose: Not Given Documented By: STEPHANIE Imaging Data Radiologist's Impression: Head CT 02/24/25 12:45 CT SCAN OF THE BRAIN WITHOUT IV CONTRAST CLINICAL HISTORY: Neurological deficit. Stroke like symptoms. COMPARISON STUDY: No priors TECHNIQUE: Unenhanced axial CT scan of the brain is performed from the vertex to the skull base. Images are reviewed in the axial, sagittal, coronal planes. A dose lowering technique was utilized adhering to the principles of ALARA. FINDINGS: Brain parenchyma: There is age-related involutional change noting [id number] subcortical and periventricular microangiopathic disease. There is no hemorrhage, mass effect, or evidence of acute territorial ischemia by CT criteria. Cha-white matter differentiation is preserved. No extra-axial fluid collection is seen. Ventricles, sulci, cisterns: Prominent secondary to involutional change. Intracranial vasculature: There is atherosclerotic calcification of the cavernous carotid arteries. Calvarium: Unremarkable. Sinuses and mastoids: The visualized paranasal sinuses are clear. The mastoid air cells are well pneumatized. Orbits: The bony orbits are grossly intact. There are bilateral ocular lens implants. IMPRESSION: There is no hemorrhage, mass effect, or evidence of acute territorial ischemia by CT criteria. ACT 112: Negative or not required by law. Electronically signed by: Mk Way M.D. 02/24/2025 1:11 PM Head CTA 02/24/25 12:45 CT angio head w con CLINICAL HISTORY: neuro deficit, acute stroke suspected. TECHNIQUE: Unenhanced axial CT scan of the brain is performed. Subsequently, following the IV administration of 120 cc of Optiray, CT angiogram of the brain was performed from the skull base to the vertex. Images are reviewed in the axial, sagittal, and coronal planes. 3-D MIPS images are created and assessed. IV contrast was administered without complication. All measurements were obtained according to NASCET criteria. A dose lowering technique was utilized adhering to the principles of ALARA. CT DOSE: 1144 COMPARISON STUDY: None FINDINGS: Left vertebral artery is dominant and the distal left vertebral artery is diminutive and not opacified more proximally, please see the report for the CTA of the neck. Distal internal carotid arteries show no significant narrowing. Basilar artery is widely patent. Anterior, middle, and posterior cerebral arteries are patent bilaterally. There is origin of the right MAIL CALLER. Cerebral venous sinuses opacify normally. IMPRESSION: No significant arterial narrowing or occlusion at the brain. ACT 112: Negative or not required by law. The above report was generated using voice recognition software. It may contain grammatical, syntax or spelling errors. Electronically signed by: Waylon Reaves M.D. 02/24/2025 1:12 PM Neck CTA 02/24/25 12:45 CT ANGIOGRAPHY OF THE NECK WITH CONTRAST CLINICAL HISTORY: neuro deficit, acute stroke suspected. Left facial droop. COMPARISON STUDY: No previous studies for comparison. Technique: CT angiography of the carotid and vertebral arteries was obtained using Optiray and 3D reconstruction on an independent workstation. NASCET criteria was utilized. Automated exposure control was utilized for the study. A dose lowering technique was utilized adhering to the principles of ALARA. CT DOSE: 1143.8 mGy.cm Findings: Visualized lung apices are unremarkable. Multinodular thyroid gland is again noted, as shown on thyroid ultrasound of April 26, 2019. There is no cervical lymphadenopathy. The right vertebral artery is dominant and patent. There is no flow identified within the mid to distal cervical left vertebral artery with reconstitution at the level of the distal cervical portion. The intracranial portion of the left vertebral artery is patent. There is no aneurysm or dissection within the neck. Moderate atherosclerotic plaque results in 60-70% stenosis of the proximal right internal carotid artery. The vessel measures 1.7 mm at site of narrowing and 4 mm distally. There is mild plaque within the left carotid bifurcation without significant stenosis. IMPRESSION: 1. 60-70% stenosis of the proximal right internal carotid artery due to moderate calcified atherosclerotic plaque. 2. Mild plaque within the proximal left internal carotid artery without stenosis. 3. No flow identified within the proximal to mid cervical portion of the left vertebral artery with distal reconstitution. 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 Dominant, patent right vertebral artery. ACT 112: Negative or not required by law. Electronically signed by: Shawn Markham M.D. 02/24/2025 1:16 PM Discharge Plan Visit Data Chief Complaint: Neuro Symptoms/Deficit Stated Complaint: IRREGULAR HB, UNCONTROLLED SHAKING, HAND SENSATION ED Provider: Ruy Douglas Discharge Problem: Weakness on left side of face, Seizure-like activity, Carotid artery narrowing Patient Disposition: Admitted As Inpatient Condition: Fair Discharge Instructions Interventions: ED Discharge Assessment Last Done: 02/24/25 16:44 Discharge Problem: Carotid artery narrowing Qualifiers: Laterality: right Qualified Code(s): I65.21 - Occlusion and stenosis of right carotid artery
[2025-02-24] MEDS: OPTIRAY 320 125ml IV ONE (12:57)
[2025-02-24 13:08] LABS: Hematocrit (blood only) 40.8 % (37.0-47.0); Hemoglobin 13.3 g/dl (12.0-16.0); Immature Granulocytes # (auto) 0.01 K/uL (0.01-0.20); Immature Granulocytes % (auto) 0.2 %; Mean Corpuscular Hemoglobin 28.1 pg (25.0-34.0); Mean Corpuscular Volume 86.3 fL (80.0-100.0); Platelet Count 207 K/uL (130-400); RDW Standard Deviation 42.8 fL (36.4-46.3); Red Blood Count 4.73 M/uL (4.20-5.40); White Blood Count 6.00 K/ul (4.8-10.8)
--- NOTE | 2025-02-24 13:12 | CT Scan Report ---
CT SCAN OF THE BRAIN WITHOUT IV CONTRAST CLINICAL HISTORY: Neurological deficit. Stroke like symptoms. COMPARISON STUDY: No priors TECHNIQUE: Unenhanced axial CT scan of the brain is performed from the vertex to the skull base. Imag es are reviewed in the axial, sagittal, coronal planes. A dose lowering technique was utilized adheri ng to the principles of ALARA. FINDINGS: Brain parenchyma: There is age-related involutional change noting [id number] subcortical and pe riventricular microangiopathic disease. There is no hemorrhage, mass effect, or evidence of acute ter ritorial ischemia by CT criteria. Cha-white matter differentiation is preserved. No extra-axial flui d collection is seen. Ventricles, sulci, cisterns: Prominent secondary to involutional change. Intracranial vasculature: There is atherosclerotic calcification of the cavernous carotid arteries. Calvarium: Unremarkable. Sinuses and mastoids: The visualized paranasal sinuses are clear. The mastoid air cells are well pneu matized. Orbits: The bony orbits are grossly intact. There are bilateral ocular lens implants. IMPRESSION: There is no hemorrhage, mass effect, or evidence of acute territorial ischemia by CT adrienne pires. ACT 112: Negative or not required by law. Electronically signed by: Mk Way M.D. 02/24/2025 1:11 PM
--- NOTE | 2025-02-24 13:13 | CT Scan Report ---
CT angio head w con CLINICAL HISTORY: neuro deficit, acute stroke suspected. TECHNIQUE: Unenhanced axial CT scan of the brain is performed. Subsequently, following the IV adminis tration of 120 cc of Optiray, CT angiogram of the brain was performed from the skull base to the vert ex. Images are reviewed in the axial, sagittal, and coronal planes. 3-D MIPS images are created and a ssessed. IV contrast was administered without complication. All measurements were obtained according to NASCET criteria. A dose lowering technique was utilized adhering to the principles of ALARA. CT DOSE: 1144 COMPARISON STUDY: None FINDINGS: Left vertebral artery is dominant and the distal left vertebral artery is diminutive and no t opacified more proximally, please see the report for the CTA of the neck. Distal internal carotid arteries show no significant narrowing. Basilar artery is widely patent. Ante rior, middle, and posterior cerebral arteries are patent bilaterally. There is origin of the ri ght [employer] B[employer]ER. Cerebral venous sinuses opacify normally. IMPRESSION: No significant arterial narrowing or occlusion at the brain. ACT 112: Negative or not required by law. The above report was generated using voice recognition software. It may contain grammatical, syntax o r spelling errors. Electronically signed by: Waylon Raeves M.D. 02/24/2025 1:12 PM
--- NOTE | 2025-02-24 13:18 | CT Scan Report ---
CT ANGIOGRAPHY OF THE NECK WITH CONTRAST CLINICAL HISTORY: neuro deficit, acute stroke suspected. Left facial droop. COMPARISON STUDY: No previous studies for comparison. Technique: CT angiography of the carotid and vertebral arteries was obtained using Optiray and 3D rec onstruction on an independent workstation. NASCET criteria was utilized. Automated exposure control was utilized for the study. A dose lowering technique was utilized adhering to the principles of ALA RA. CT DOSE: 1143.8 mGy.cm Findings: Visualized lung apices are unremarkable. Multinodular thyroid gland is again noted, as show n on thyroid ultrasound of April 26, 2019. There is no cervical lymphadenopathy. The right vertebral artery is dominant and patent. There is no flow identified within the mid to distal cervical left ve rtebral artery with reconstitution at the level of the distal cervical portion. The intracranial port ion of the left vertebral artery is patent. There is no aneurysm or dissection within the neck. Moder ate atherosclerotic plaque results in 60-70% stenosis of the proximal right internal carotid artery. The vessel measures 1.7 mm at site of narrowing and 4 mm distally. There is mild plaque within the le ft carotid bifurcation without significant stenosis. IMPRESSION: 1. 60-70% stenosis of the proximal right internal carotid artery due to moderate calcified atheroscle rotic plaque. 2. Mild plaque within the proximal left internal carotid artery without stenosis. 3. No flow identified within the proximal to mid cervical portion of the left vertebral artery with d istal reconstitution. 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 Dominant, patent right vertebral artery. ACT 112: Negative or not required by law. Electronically signed by: Shawn Markham M.D. 02/24/2025 1:16 PM
[2025-02-24 13:20] LABS: INR 1.0 (0.9-1.1); Partial Thromboplastin Time 27 Seconds (21-31); Prothrombin Time 10.8 Seconds (9.0-12.0)
[2025-02-24 13:36] LABS: Alanine Aminotransferase 11.0 U/L (7-52); Albumin Globulin Ratio 1.5 (0.9-2); Alkaline Phosphatase 74.0 U/L (34-104); Anion Gap 6.0 (3-11); Bilirubin,Total 0.6 mg/dl (0.2-1.0); Blood Urea Nitrogen 22.0 mg/dl (6-23); Calcium 9.1 mg/dl (8.6-10.3); Carbon Dioxide 29.0 mmol/L (21-32); Chloride 108.0 mmol/L (98-107); Creatinine Clr Calc Pharmacy 41.2 ml/min; Globulin 2.6 gm/dl (2.5-4.0); Glucose 89.0 mg/dl (70-99(Fasting)); Magnesium 2.1 mg/dl (1.7-2.4); Potassium 3.9 mmol/L (3.5-5.1); Sodium 143.0 mmol/L (136-145); Total Protein 6.5 gm/dl (6.0-8.3)
[2025-02-24] MEDS: ASPIRIN 81 MG CHEW PO STA (13:44)
[2025-02-24] MEDS: LABETALOL HCL IV 5 MG/ML 20ML IV STA (13:44)
--- NOTE | 2025-02-24 14:18 | History & Physical Report ---
Date of Service February 24, 2025 Assessment & Plan (1) Stroke-like episode: (2) Hypertensive urgency: (3) Dementia: (4) Hypothyroidism: Plan Pt is an 79 yo female with a past med hx of moderate-severe dementia (probable alzheimers per neuro), CKD stage 3, hx L breast ductal carcinoma, hx LBBB, hypothyroidism, hx aortic valve stenosis, and mixed incontinence who presents to the hospital on 02/24 for episode of L sided facial pain, R arm shaking for about 30 minutes and bilateral leg weakness that occurred day of admission around 11am. #Stroke like symptoms - occurred at 11 am on 02/24; L sided facial pain, R arm shaking for 30 min, bilateral leg weakness without fall - acute stroke vs seizure are leading differentials aside from progression of alzheimers - consult neuro - will do EEG and brain MRI - CT/CTA head and neck not showing stroke on admission - given loading dose of aspirin and keppra prior to admission, will continue these daily - will hold off on DAPT until evaluated by neuro (telestroke did not recommend TNKase) - will do permissive HTN <210/110 for goal with labetolol doses for higher BPs; pt does tense arm when cuff inflates so would recommend repeat under supervision prior to giving meds - CTA neck did show carotid stenosis 70%, if MRI + for stroke would recommend eval by vascular within 2 weeks - last echo was 05/2024; will do repeat with bubble study - telemetry overnight if tolerated to evaluate for afib/arrhythmias - PT/OT #HTN urgency - no reported symptoms - BP in the ED was 200s/80-100s, given small dose of labetalol by ED - will allow for permissive HTN <210/110 pending MRI evaluation for stroke, if MRI negative can tighten control to <185/110 #Dementia - pt quite agitated at times on admission - will defer prn meds at this time as she is able to be calmed and hopefully can be discharged tomorrow - if agitated overnight can consider discontinuing telemetry and reducing IV use as able if pt not showing arrhythmias on monitor throughout the day to help with agitation and reduce need for chemical or physical restraints #Hypothyroidism - last check in our system of TSH was fall 2023; will place for TSH with am labs VTE ppx: hold on admission, will set to start tomorrow at 9am lovenox with hold if MRI positive for hemorrhagic stroke in the interval History of Present Illness Chief Complaint: Stroke like symptoms Primary Care Provider: Amada Villa DO Pt is an 79 yo female with a past med hx of moderate-severe dementia (probable alzheimers per neuro), CKD stage 3, hx L breast ductal carcinoma, hx LBBB, hypothyroidism, hx aortic valve stenosis, and mixed incontinence who presents to the hospital on 02/24 for episode of L sided facial pain, R arm shaking for about 30 minutes and bilateral leg weakness that occurred day of admission around 11am. Pt is here with her and daughter at bedside. Patient visibly upset to be here so history mostly obtained from and daughter. Around 11 am today family noticed that patient was covering the L side of her face and head stating something was wrong and noting pain as well. They state that then she started to have R arm shaking that lasted for about 30 minutes and has since resolved. They state that she was also at that time noted to have some bilateral leg weakness, feeling unsteady on her feet. They deny hx of CVA, seizures, or GA for her in the past. Family denies hx of recent falls for her. No recent hospitalizations for her. She lives with her that helps her with some activities but she gets around the house on her own without the use of a walker or other devices. At the present, pt is very upset to be here and does not want to stay here, very angry with family for bringing her to the hospital today. Allergies Allergy/AdvReac Type Severity Reaction Status Date / Time salmeterol Allergy Severe SHORTNESS Verified 02/21/25 12:57 OF BREATH Latex, Natural Rubber Allergy Intermediate Redness of Verified 02/21/25 12:57 Skin adhesive Allergy Unknown REDNESS,RASH-WITH Verified 02/21/25 12:57 BANDAIDS-CAN USE RUBBER BANDS, BLOW UP BAL mold Allergy Unknown ASTHMA Verified 02/21/25 12:57 SYMPTOMS fluticasone AdvReac Intermediate SHORTNESS Verified 02/21/25 12:57 OF BREATH PERFUMES Allergy Unknown ASTHMA Uncoded 02/21/25 12:57 SYMPTOMS Home Medications Medication Instructions Recorded Confirmed Type calcium carbonate (Calcium 500) 1,000 mg PO QAM 02/15/19 02/24/25 History levothyroxine 50 mcg tablet 50 mcg PO Q2D #45 tabs 01/06/24 02/24/25 Rx memantine 10 mg tablet 10 mg PO BID 90 days #180 tabs 06/30/24 02/24/25 Rx mirabegron 50 mg tablet,extended 50 mg PO DAILY #90 tabs 10/18/24 02/24/25 Rx release 24 hr (Myrbetriq) donepezil 10 mg tablet (Aricept) 10 mg PO HS #90 tabs 11/01/24 02/24/25 Rx cyanocobalamin (vitamin B-12) 1,000 mcg PO DAILY 11/10/24 02/24/25 History 2,500 mcg tablet levothyroxine 25 mcg tablet 25 mcg PO Q2D #45 tabs 12/27/24 02/24/25 Rx loratadine 10 mg tablet 10 mg PO DAILY 02/24/25 02/24/25 History rosuvastatin 5 mg tablet 5 mg PO .MON,THU,Thursday02/24/25 02/24/25 History Past Med/Surg History Problem List (Updated 02/24/25 @ 15:48 by Criss Soni DO) Hypertensive urgency Stroke-like episode Aortic stenosis Microscopic hematuria History of cancer of left breast S/P RADIATION, LUMPECTOMY Vitamin B12 deficiency Mixed incontinence Dementia CKD (chronic kidney disease) stage 3, GFR 30-59 ml/min Prediabetes History of colon polyps Vitamin D deficiency (Chronic) Tricuspid regurgitation (Acute) does not see cardio Osteopenia, senile (Chronic) hx Mitral regurgitation (Chronic) "unsure, I don't see a test desk supervisor" LBBB (left bundle branch block) (Acute) hx; "no pacemaker, and I don't see a test desk supervisor" Hypothyroidism (Chronic) Hyperlipidemia (Chronic) History of basal cell carcinoma (Acute) s/p removal of bcc's. Charlie's thyroiditis (Acute) Aortic valve sclerosis (Acute) hx-"unsure, it should be in my chart if I have it" does not follow cardio Medical History Carotid artery bruit Paresthesia of foot, bilateral Solitary thyroid nodule Psoriasis Asthma Left ventricular hypertrophy Asthma Surgical History Hx of vaginal hysterectomy History of cataract surgery History of bilateral tubal ligation History of colonoscopy History of tonsillectomy History of left breast biopsy History of lumpectomy of left breast Family History Unknown FH: CABG (coronary artery bypass surgery) History of heart valve replacement Cancer Grandmother Breast cancer Denies family history of Ovarian cancer Prostate cancer Myocardial infarction Lung cancer Colorectal cancer Social History Smoking Status: Never smoker Second Hand Exposure: Yes; Do You Dip or Chew Tobacco: No; Hx Alcohol Use: Yes Alcohol type: wine Alcohol Intake Frequency: 2-3 x/Week Hx Substance Use: No Preferred Language: Tanzanian Communication Ability: Effective Visual Impairment: Limited Hearing Ability: Normal Teaching Young Required: No Beliefs That Will Affect Care: None marital status: Current Living Situation: Spouse current occupational status: retired How many Children do You have: 4 Feels Safe at Home: Yes Childhood Exposure to Second-Hand Smoke: Yes Diet: low salt caffeine: Yes Dental Care, Regularly: No Physical Activity Frequency: 3-4 Times per Week Physical Activity Frequency Comment: walks Seatbelt Use: always Sunscreen Use: Yes Do you think of yourself as: straight/heterosexual Assistive Devices: Denture - Upper and Glasses Review of Systems Review of Systems: Per HPI. Physical Exam Physical Exam: General: Alert, very unhappy and mostly uncooperative HEENT: Normocephalic, moist oral mucosa, Cardio: Regular rate and rhythm, + murmur, Resp: Lungs clear to auscultation bilaterally from front chavis GI: Soft and nontender Skin: Warm, pink, dry, Neuro: Symmetric brow raise, no tongue deviation, no obvious facial droop, chair frame builder strength is symmetric, LE strength is symmetric with even sensation of upper and lower extremities Results & Data Results & Data Vital Signs (Past 12 Hours) Vital Signs Temp Pulse Pulse Resp BP BP Pulse Ox 02/24/25 14:05 63 18 212/102 H 93 02/24/25 14:04 63 212/102 H 02/24/25 13:51 59 L 18 96 02/24/25 13:51 211/96 H 02/24/25 13:48 64 18 98 02/24/25 13:45 207/89 H 02/24/25 13:45 207/89 H 02/24/25 13:44 68 215/96 H 02/24/25 13:39 69 26 H 95 02/24/25 13:26 215/96 H 02/24/25 13:26 215/96 H 02/24/25 13:26 215/96 H 02/24/25 13:24 66 16 98 02/24/25 13:21 65 18 97 02/24/25 13:16 207/88 H 02/24/25 13:16 207/88 H 02/24/25 13:16 207/88 H 02/24/25 13:15 66 17 97 02/24/25 13:15 68 17 207/88 H 97 02/24/25 13:06 74 13 02/24/25 13:06 155/82 H 95 02/24/25 13:06 155/82 H 02/24/25 13:05 71 02/24/25 12:26 36.6 C 67 18 129/71 96 O2 Del Method 02/24/25 14:05 Room Air 02/24/25 14:04 02/24/25 13:51 02/24/25 13:51 02/24/25 13:48 02/24/25 13:45 02/24/25 13:45 02/24/25 13:44 02/24/25 13:39 02/24/25 13:26 02/24/25 13:26 02/24/25 13:26 02/24/25 13:24 02/24/25 13:21 02/24/25 13:16 02/24/25 13:16 02/24/25 13:16 02/24/25 13:15 02/24/25 13:15 Room Air 02/24/25 13:06 02/24/25 13:06 02/24/25 13:06 02/24/25 13:05 02/24/25 12:26 Supervising Physician Co-Signing Physician Notes Patient seen and examined, chart reviewed, case discussed with Dr. Soni and I agree with the assessment and plan as above except as otherwise noted Labs and images reviewed Kate is an 79-year-old female with a past medical history of moderate aortic stenosis, dementia, CKD 3, prediabetes, hypothyroidism, hyperlipidemia, left bundle branch block who presented for evaluation of sudden onset left-sided facial tingling, concern for shaking and possible weakness in the right arm and both legs, and acute on chronic confusion. Last known normal was 11 AM. She had some shaking and weakness in both legs, in the right arm. EKG: Left bundle branch block redemonstrated, sinus. CTAhneck: 60-70% stenosis of proximal RCA, mild plaque of the left ICA. No flow identified in the proximal to mid cervical portion of left vertebral artery with distal reconstitution. 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 CTAhead: No significant arterial narrowing/occlusion CThead: No acute finding Received full dose aspirin in the ER and 5 mg labetalol for hypertension Received Keppra 1 g due to possible shaking and concern for seizure Was seen by stroke neurology and was recommended for aspirin therapy at this time. Was not recommended for thrombolysis. At time of bedside she has 5/5 chair frame builder strength, elbow flexion/extension, hip extension, knee extension, and ankle dorsi/plantarflexion. Disposition engagement is slightly guarded, however with encouragement patient does follow neurologic exam appropriately and does not appear postictal or overtly confused. Agree with completion of stroke workup with additional evaluation for seizure given reports of shaking and atypical distribution (left face, right arm, both legs) for stroke. Will follow-up for MRI, EEG, permissive hypertension as noted. If MRI shows no stroke pathology can decrease blood pressure goal parameters to 180/90. Until then we will keep permissive hypertension 220/110 goal parameters with labetalol and call as needed. Will reassess for aspirin therapy versus 3 weeks of DAPT based on results. Echo pending. Agree with above Resident Activity Tracking Resident Involvement: Resident Care Provided Care Provided: Adult [facility] Medicine
[2025-02-24] MEDS ORDERED: ACETAMINOPHEN 325 MG TAB PO PRN (16:57)
[2025-02-24] MEDS ORDERED: ONDANSETRON INJ 2 MG/ML 2 ML VIAL IV PRN (16:57)
[2025-02-24] MEDS ORDERED: LABETALOL HCL IV 5 MG/ML 20ML IV PRN (16:57)
[2025-02-24] MEDS ORDERED: MELATONIN 3 MG TAB PO PRN (16:57)
[2025-02-24] MEDS ORDERED: POLYETHYLENE (MIRALAX) 17 GM PACK PO PRN (16:57)
[2025-02-24] MEDS: LEVOTHYROXINE SODIUM 25 MCG TABLET PO SCH (18:06)
[2025-02-24] MEDS: MEMANTINE HCL 10 MG TAB PO SCH (20:25)
[2025-02-24] MEDS: DONEPEZIL HCL 10 MG TAB PO SCH (20:25)
[2025-02-24] MEDS ORDERED: PHA DELIRIUM CONSULT PRN (21:45)
[2025-02-25] MEDS: LEVOTHYROXINE SODIUM 25 MCG TABLET PO SCH (06:02)
--- NOTE | 2025-02-25 06:02 | Electrocardiogram Report ---
Test Reason : Blood Pressure : */* mmHG Vent. Rate : 74 BPM Atrial Rate : 74 BPM P-R Int : 180 ms QRS Dur : 128 ms QT Int : 442 ms P-R-T Axes : 50 -38 103 degrees QTcB Int : 490 ms Normal sinus rhythm Left axis deviation Left bundle branch block Abnormal ECG When compared with ECG of 26-Aug-2024 11:45, Sinus rhythm has replaced Ectopic atrial rhythm Confirmed by Rashi Cartagena ([id number]) on 02/25/2025 6:01:41 AM Referred By: REFERRED SELF Confirmed By: Rashi Cartagena
[2025-02-25 07:02] LABS: Anion Gap 7.0 (3-11); Blood Urea Nitrogen 25.0 mg/dl (6-23); Calcium 8.9 mg/dl (8.6-10.3); Carbon Dioxide 28.0 mmol/L (21-32); Chloride 110.0 mmol/L (98-107); Cholesterol 162.0 mg/dl (0-200); Creatinine Clr Calc Pharmacy 38.9 ml/min; Glucose 89.0 mg/dl (70-99(Fasting)); HDL Cholesterol 66.0 mg/dl; Magnesium 2.4 mg/dl (1.7-2.4); Potassium 4.1 mmol/L (3.5-5.1); Sodium 145.0 mmol/L (136-145); Triglycerides 104.0 mg/dl (0-150)
[2025-02-25 07:18] LABS: Thyroid Stimulating Hormone 1.4 uIu/ml (0.300-4.500)
[2025-02-25 07:55] VITALS: RESP 18; O2SAT 94
[2025-02-25] MEDS: LORATADINE 10 MG TAB PO SCH (09:31)
[2025-02-25] MEDS: ASPIRIN 81 MG ECTAB PO SCH (09:31)
[2025-02-25] MEDS: VIBEGRON 75 MG TAB PO SCH (09:31)
[2025-02-25] MEDS: ENOXAPARIN INJ 40 MG/0.4 ML SYR SQ SCH (09:32)
--- NOTE | 2025-02-25 10:21 | Neurology Consultation ---
Date of Consultation February 25, 2025 Assessment & Plan (1) Transient neurological symptoms: History of Present Illness Attending Physician: Ron Ortiz MD History of Present Illness S: pt well known to neurology, dr. Manriquez's pt. pt this morning feeling well. alert and following command well and talkative. chart reviewed. Admission HPI: 79-year-old female with a history of dementia but no previous history of stroke arrives for evaluation of sudden onset left facial weakness as well as some shaking of her right upper arm and questionable weakness. Arrives via private vehicle and stroke alert immediately called by triage. I met patient in CT. She is able to ambulate from the chair to the CT bed. Does have some left facial weakness but is easily overcome by voluntary motion. Thus relatively low NIH score on arrival. CT Noncon of the head read by me informally revealed no evidence of intracranial hemorrhage. I discussed this with teleneurologist and my significant concerns that this patient would be a poor candidate for TNKase but alone her symptoms do not really match up well with stroke. He further evaluated the patient and did agree with this. Sug gested consideration of possible seizure-like activity given the shaking of the arm earlier. . On repeat evaluation patient looks well she is much more talkative she is interactive. She was given 1 g of IV Keppra along with some p.o. Ativan. Blood pressure was relatively high and given the increasing blood pressure she was given a very small dose of IV labetalol which she tolerated well. Hospitalist was consulted for further management and evaluated. At time of hospitalization I do not feel the patient has evidence of sepsis. She is not in any distress Triage/Nursing Notes reviewed by Me External Chart Review by me: PCP note from 11/11/2019 Maikol was reviewed by me for past medical history Differential:Infection, hypoglycemia, electrolyte abnormalities, overdose, toxicologic, cardiac sources, intracerebral event, neurologic, trauma, as well as other pathologies. Vital Signs: reviewed and remarkable for no significant abnormalities Interventions: Aspirin p.o., labetalol IV Labs:ED labs Reviewed by me and remarkable for no significant abnormalities Imaging:CT head without contrast as per my informal interpretation reveals no intracranial hemorrhage or mass effect. Radiologist concurs. CT angiography of the head and neck reveals no occlusion however there is moderate right carotid stenosis as per radiologist EKG:As per my interpretation. Indication strokelike symptoms. Normal sinus rhythm at 74 bpm QTc of 490. There is left bundle branch block. There is no ectopy nor ischemia. When compared to EKG of December no significant change. Cardiac/Tele Monitoring: Cardiac Monitoring: An Order was placed for continuous cardiac monitoring. The monitor shows a rate of 70 with a normal sinus rhythm. Consults:Stroke neurologist Dr. Anton reviewed case over phone as well as evaluated patient over monitor agrees with holding off TNKase as well as proceeding with giving Keppra for possible seizure-like activity. Allergies Allergy/AdvReac Type Severity Reaction Status Date / Time salmeterol Allergy Severe SHORTNESS Verified 02/21/25 12:57 OF BREATH Latex, Natural Rubber Allergy Intermediate Redness of Verified 02/21/25 12:57 Skin adhesive Allergy Unknown REDNESS,RASH-WITH Verified 02/21/25 12:57 BANDAIDS-CAN USE RUBBER BANDS, BLOW UP BAL mold Allergy Unknown ASTHMA Verified 02/21/25 12:57 SYMPTOMS fluticasone AdvReac Intermediate SHORTNESS Verified 02/21/25 12:57 OF BREATH PERFUMES Allergy Unknown ASTHMA Uncoded 02/21/25 12:57 SYMPTOMS Home Medications Medication Instructions Recorded Confirmed Type calcium carbonate (Calcium 500) 1,000 mg PO QAM 02/15/19 02/24/25 History levothyroxine 50 mcg tablet 50 mcg PO Q2D #45 tabs 01/06/24 02/24/25 Rx memantine 10 mg tablet 10 mg PO BID 90 days #180 tabs 06/30/24 02/24/25 Rx mirabegron 50 mg tablet,extended 50 mg PO DAILY #90 tabs 10/18/24 02/24/25 Rx release 24 hr (Myrbetriq) donepezil 10 mg tablet (Aricept) 10 mg PO HS #90 tabs 11/01/24 02/24/25 Rx cyanocobalamin (vitamin B-12) 1,000 mcg PO DAILY 11/10/24 02/24/25 History 2,500 mcg tablet levothyroxine 25 mcg tablet 25 mcg PO Q2D #45 tabs 12/27/24 02/24/25 Rx loratadine 10 mg tablet 10 mg PO DAILY 02/24/25 02/24/25 History rosuvastatin 5 mg tablet 5 mg PO .MON,THU,Thursday02/24/25 02/24/25 History Patient History Medical History Carotid artery bruit Paresthesia of foot, bilateral Solitary thyroid nodule Psoriasis Asthma Left ventricular hypertrophy Asthma Surgical History Hx of vaginal hysterectomy History of cataract surgery History of bilateral tubal ligation History of colonoscopy History of tonsillectomy History of left breast biopsy History of lumpectomy of left breast Family History Unknown FH: CABG (coronary artery bypass surgery) History of heart valve replacement Cancer Grandmother Breast cancer Denies family history of Ovarian cancer Prostate cancer Myocardial infarction Lung cancer Colorectal cancer Social History Smoking Status: Never smoker Second Hand Exposure: Yes; Do You Dip or Chew Tobacco: No; Hx Alcohol Use: No Hx Substance Use: No Preferred Language: Armenian Communication Ability: Effective Visual Impairment: Limited Hearing Ability: Normal [employer] Sales Supervisor Required: No Beliefs That Will Affect Care: None marital status: Current Living Situation: Spouse current occupational status: retired How many Children do You have: 4 Feels Safe at Home: Yes Childhood Exposure to Second-Hand Smoke: Yes Diet: low salt caffeine: Yes Dental Care, Regularly: No Physical Activity Frequency: 3-4 Times per Week Physical Activity Frequency Comment: walks Seatbelt Use: always Sunscreen Use: Yes Do you think of yourself as: straight/heterosexual Review of Systems Review of Systems: All systems reviewed & are unremarkable except as noted in Subjective Constitutional: as per Subjective / HPI Eyes: as per Subjective / HPI Ear, Nose, Mouth, Throat: as per Subjective / HPI Respiratory: as per Subjective / HPI Cardiovascular: as per Subjective / HPI Gastrointestinal: as per Subjective / HPI Musculoskeletal: as per Subjective / HPI Integumentary: as per Subjective / HPI Neurologic: as per Subjective / HPI Psychiatric: as per Subjective / HPI Endocrine: as per Subjective / HPI Hematologic / Lymphatic: as per Subjective / HPI Allergy / Immunological: as per Subjective / HPI Exam (Neuro) Physical Exam: HEENT: normocephalic Neuro: Mental: Alert, not sure of date or name of place but she knew she was in hospital. follows command well., fluent speech. tangential thoughts. CN: PERRL, Full EOM, symmetric face, midline T/U/P, Motor: No abnormal movements, normal tone and bulk, 5/5 t/o bilaterally Coord: intact grossly. DTR: 1+ sym b/l Impression: 79 yo female with transient neurological symptoms with now resolution and back to baseline. pt with known advance dementia. Ddx including metabolic disorder (i.e. UTI/dehydration) vs TIA. Pt now with nonfocal exam. Recommendations: 2. antiplatelet therapy: DAPT 21 days fo r this pt. * DAPT (dual antiplatelet therapy): start for pts with ABCD2 score 4 or higher. Initial loading dose with ASA 325mg and Plavix 300mg (if pt has not been started), then ASA 81mg daily and Plavix 75mg daily. Continue DAPT for 21 days if found small vessel disease only or continue for 90 days if found to have intracranial large artery atherosclerosis. After that, can continue single antiplatelet therapy (either ASA or Plavix). 3. Images: i agree at that mri brain is not going to exchange underwriting consultant and sedating pt for the scan is very risky. CTA findings are chronic in nature and does not need immediate intervention. check U/A and culture (pt with prior recurrent UTI). EEG cancelled, not going to exchange underwriting consultant and overall does not suggestive of seizure. 4. Permissive Hypertension for next 24 h rs. Keep SBP goal range less than 220. Avoid hypotension. Do not stop beta-kaci if on it. 6. Long-term SBP goal less than 130. 7. Plenty of hydration including IV flui d if possible (use isotonic solution) Avoid hypovolemia and hypotension. 8. Initiate DVT prevention therapy. 9. Avoid hypoglycemia, serum glucose goa l during hospitalization: 140-180. 10. Long-term HgA1c goal less than 7. 11. Start statin if not on it and no abs olute contraindication, long-term LDL goal less than 70. 13. Stroke education by nursing and appr opriate staff. 14. Telemetry monitoring. Consider correction cardiac monitoring, i.e. MCOT (mobile cardiac outpatient telemetry) or ICM (insertable powderman, e.g. LINQ), if never had correction cardiac monitoring done previously. And if found to have atrial flutter or fibrillation, should consider anticoagulation therapy if no contraindication. not much to offer at this point. will sign off. call if new question. discussed case with pt's daughter. Chart reviewed I have spent more than 50% educating patient's daughter about potential diagnosis and neurological evaluation and coordinating care with patient's treatment team. Total time spent (including chart review and coordination of care): 60 min (this includes chart review). Results & Data Vital Signs (Past 12 Hours) Vital Signs Temp Pulse Pulse Resp BP Pulse Ox O2 Del Method 02/25/25 08:23 77 02/25/25 07:54 36.7 C 57 L 18 120/66 94 Room Air 02/25/25 03:16 36.5 C 73 20 118/65 96 Room Air 02/25/25 00:14 36.8 C 69 20 113/72 96 Room Air PG Care Time/CCT Total # of Minutes Spent Total Time Spent with Patient: Total time spent is greater than 50% in coordination of care (as documented) at patient's floor/unit and/or counseling patient: Coding Level of Care Code 28893 IN/OBS CONSULT LVL 4,60M Diagnoses Transient neurological symptoms R29.818
--- NOTE | 2025-02-25 10:44 | Discharge Summary ---
Discharge Summary Date of Service February 25, 2025 Principal Dx & Hospital Course #1 = Principal Diagnosis (1) Stroke-like episode: (2) Hypertensive urgency: (3) Dementia: (4) Hypothyroidism: (5) Abnormality of left ventricular outflow tract: Plan Pt is an 79 yo female with a past med hx of moderate-severe dementia (probable alzheimers per neuro), CKD stage 3, hx L breast ductal carcinoma, hx LBBB, hypothyroidism, hx aortic valve stenosis, and mixed incontinence who presents to the hospital on 02/24 for episode of L sided facial pain, R arm shaking for about 30 minutes and bilateral leg weakness that occurred day of admission around 11am. Suspect etiologies include TIA versus possible transient outflow tract obstruction leading to a presyncopal/syncopal event, DDx also includes transient metabolic encephalopathy with underlying dementia, less likely seizure To do as outpatient: 1. Continue DAPT for 3 weeks, then aspirin monotherapy 2. Chronic 70% ICA stenosis, territory does not clearly much patient's sympto ms. Outpatient follow-up with vascular 3. Continue rosuvastatin. Patient tolerates this at a 3 times weekly dose which has been continued. Reasonable lipid control 4. Continue metoprolol 12.5 mg tartrate twice daily. Follow-up with cardiology for dynamic LV obstruction. Importance of staying hydrated was reviewed with patient and family #Stroke like symptoms - occurred at 11 am on 02/24; L sided facial pain, R arm shaking for 30 min, bilateral leg weakness without fall EKG sinus -Initial diagnosis CVA/TIA, seizure, vasovagal episode, metabolic encephalopathy, hypertensive urgency CThead without acute findings CTAneck with 70% carotid stenosis Lower suspicion for seizure, following with/benefits discussion with family EEG and Keppra deferred. Neurology in agreement MRI was ordered however patient with difficulty staying still for MRIs due to dementia and unsure decision making the family preferred to defer this. 24-hour interval CThead with no acute findings Anticipate 3 weeks of DAPT then transition to aspirin monotherapy Permissive hypertension was pursued for 24 hours, she is currently normotensive Repeat bubble study pending, this will not significantly policy change clerk and can follow-up on final result as -Patient ambulating independently with full strength and no deficits at time of morning visit Moderate concentric LVH, dynamic LVOT TTE showed evidence of a dynamic LV obstruction without a significant gradient. She is previously noted to be at risk of this on her prior cardiology follow-up Kate did not have any chest pain or chest pressure during admission, and did not show evidence of heart failure as patient's symptoms may have been presyncopal. Importance of hydration and avoiding dehydration was discussed with patient and family, and she was started on a low-dose of metoprolol tartrate 12.5 mg twice daily with blood pressure monitoring at home. Patient does admit that she does not like being late in the day so she tends to drink very little water. She will work on drinking more water and staying hydrated through the day, family will assist with this. No other questions at bedside. #Dementia - pt quite agitated at times on admission. Greatly improved on reassessment the following day -At her normal baseline 02/25. #Hypothyroidism -TSH normal Continue Synthroid Admission HPI Per Admitting Provider Pt is an 79 yo female with a past med hx of moderate-severe dementia (probable alzheimers per neuro), CKD stage 3, hx L breast ductal carcinoma, hx LBBB, hypothyroidism, hx aortic valve stenosis, and mixed incontinence who presents to the hospital on 02/24 for episode of L sided facial pain, R arm shaking for about 30 minutes and bilateral leg weakness that occurred day of admission around 11am. Pt is here with her and daughter at bedside. Patient visibly upset to be here so history mostly obtained from and daughter. Around 11 am today family noticed that patient was covering the L side of her face and head stating something was wrong and noting pain as well. They state that then she started to have R arm shaking that lasted for about 30 minutes and has since resolved. They state that she was also at that time noted to have some bilateral leg weakness, feeling unsteady on her feet. They deny hx of CVA, seizures, or ID for her in the past. Family denies hx of recent falls for her. No recent hospitalizations for her. She lives with her that helps her with some activities but she gets around the house on her own without the use of a walker or other devices. At the present, pt is very upset to be here and does not want to stay here, very angry with family for bringing her to the hospital today. Discharge Exam General: Oriented to name and hospital. HEENT: Atraumatic, normocephalic. Vision/hearing grossly intact. No facial as ymmetry, speech fluent, tongue protrudes Pulm: CTAB A&P. -wheezes, -rales, -rhonchi. Symmetrical chest rise. No increased work of breathing. No respiratory distress. Cardiac: RRR, +sm. Radial pulses intact and symmetrical. Abdominal: Nontender, nondistended, soft. BS present. Extremities: Robust 5/5 ivory carver strength, elbow flexion/extension, shoulder flexion, hip flexion, knee extension, ankle dorsiflexion/plantarflexion. Sensation intact in his feet without deficit. Ambulating independently morning of discharge Discharge Plan Discharge Items Patient Disposition: Home - Self-Care Reason For Visit: STROKE LIKE SYMPTOMS Discharge Diagnosis: TIA versus hypertensive urgency versus transient metabolic encephalopathy Condition on Discharge: Fair Activity: Resume your previous activity Non-emergency contact: Primary Care Provider and Neurologist Call non-emergency contact if: you have any medication questions, your symptoms worsen and your pain is not controlled Follow-up/Referrals: Db Ortega MD, PhD [Physician] - Refugio Manriquez MD [Physician] - Amada Villa DO [Primary Care Provider] - 03/07/25 10:00 am (Appointment is with Kayla Tirado PA-C.) Juan Manuel Menendez MD [Physician] - Diet: Heart Healthy Addtl Attending Provider Instructions: You are seen in the hospital for confusion, shaking/weakness, and facial discomfort with possible asymmetry concerning for potential stroke. Your symptoms may have been a TIA versus stroke, due to hypertension, or due to a transient LV tract outflow obstruction A CT scan of your head did not show any acute stroke. A CT scan of your neck showed a chronic blockage in the right carotid vessel. On shared decision making an MRI was deferred due to difficulty tolerating this and high risk of complications for sedated MRI. Your symptoms could have been caused by a mini stroke; you have been started on aspirin and Plavix for 3 weeks to help reduce the risk of recurrent stroke. After 3 weeks you can continue aspirin 81 mg alone and discontinue Plavix. Follow-up with your primary care physician, neurologist, and vascular surgery are being scheduled. A vascular surgery consult was ordered to follow the narrowing in your right carotid artery. In some patients this can increase risk of or cause stroke/mini strokes. Please continue taking your rosuvastatin An ultrasound of your heart, called an echocardiogram showed some moderate concentric LVH hypertrophy: Thickening). There was evidence of a dynamic obstruction without significant flow gradient. In sum patient's adynamic outflow obstruction can cause symptoms including congestive heart failure, dyspnea, fatigue, chest pain, and syncope. It is possible that this could have contributed to a episode of passing out or near passing out which led to shaking and confusion. You have been started on a beta-kaci, a medication to treat this condition which can lower heart rate and blood pressure. If you have low blood pressure, low heart rate, or episodes of passing out please seek medical reevaluation. An appointment is being made for you with a master in chancery for follow-up. Your thyroid levels were normal during admission, your heart rhythm was a normal sinus rhythm, and your heart markers were normal. You did not show evidence of an acute infection during admission If you develop any new or worsening symptoms including fever, chills, sweats, chest pain, chest pressure, difficulty breathing, uncontrolled nausea/vomiting, rash, wheezing, passing out or nearly passing out, bleeding, black/bloody bowel movements, or other new or concerning symptoms please call your primary care physician, or call 911 for re-evaluation in the emergency department if you are very concerned. Pending Studies at Discharge: No Stand-Alone Forms: My [facility] [employer], Smoking Cessation Medications and DC Order Prescriptions: New aspirin 81 mg Tablet,Delayed Release (Dr/Ec) 81 mg PO DAILY Qty: 30 1RF clopidogrel 75 mg tablet 75 mg PO DAILY Qty: 21 0RF metoprolol tartrate 25 mg Tablet 12.5 mg PO BID Qty: 30 0RF Continued levothyroxine 50 mcg tablet 50 mcg PO Q2D Qty: 45 3RF mirabegron [Myrbetriq] 50 mg tablet extended release 24 hr 50 mg PO DAILY Qty: 90 3RF donepezil [Aricept] 10 mg tablet 10 mg PO HS Qty: 90 3RF levothyroxine 25 mcg tablet 25 mcg PO Q2D Qty: 45 3RF cyanocobalamin (vitamin B-12) 2,500 mcg tablet 1,000 mcg PO DAILY memantine 10 mg tablet 10 mg PO BID 90 Days Qty: 180 3RF calcium carbonate [Calcium 500] 500 mg calcium (1,250 mg) tablet 1,000 mg PO QAM loratadine 10 mg Tablet 10 mg PO DAILY rosuvastatin 5 mg tablet 5 mg PO .MON,WED,THURSDAY Rx Instructions: take 1 tablet thursday, thursday and thursday. Discharge Orders: Discharge Order (Routine); Ordered 02/25/25 Ordered By: Ron Ortiz Admission Data Admit Date/Time: 02/24/25 15:28 Attending Provider: Ron Ortiz Admit Provider: Criss Soni Primary Care Provider: Amada Villa Other Providers: Ron Ortiz; Mal Murillo Hospital Stay Data Consultations 02/24/25 14:01 ED Decision to Admit Stat 02/24/25 16:57 Consult Neurology Routine Diagnostic Imagining Performed 02/24/25 12:45 CT angio head w con Stat CT angio neck with con Stat CT head/brain wo con Stat 02/25/25 13:00 CT head/brain wo con Routine Discharge Instructions Given to Patient (Per Discharging Provider) You are seen in the hospital for confusion, shaking/weakness, and facial discomfort with possible asymmetry concerning for potential stroke. Your symptoms may have been a TIA versus stroke, due to hypertension, or due to a transient LV tract outflow obstruction A CT scan of your head did not show any acute stroke. A CT scan of your neck showed a chronic blockage in the right carotid vessel. On shared decision making an MRI was deferred due to difficulty tolerating this and high risk of complications for sedated MRI. Your symptoms could have been caused by a mini stroke; you have been started on aspirin and Plavix for 3 weeks to help reduce the risk of recurrent stroke. After 3 weeks you can continue aspirin 81 mg alone and discontinue Plavix. Follow-up with your primary care physician, neurologist, and vascular surgery are being scheduled. A vascular surgery consult was ordered to follow the narrowing in your right carotid artery. In some patients this can increase risk of or cause stroke/mini strokes. Please continue taking your rosuvastatin An ultrasound of your heart, called an echocardiogram showed some moderate concentric LVH hypertrophy: Thickening). There was evidence of a dynamic obstruction without significant flow gradient. In sum patient's adynamic outflow obstruction can cause symptoms including congestive heart failure, dyspnea, fatigue, chest pain, and syncope. It is possible that this could have contributed to a episode of passing out or near passing out which led to shaking and confusion. You have been started on a beta-kaci, a medication to treat this condition which can lower heart rate and blood pressure. If you have low blood pressure, low heart rate, or episodes of passing out please seek medical reevaluation. An appointment is being made for you with a master in chancery for follow-up. Your thyroid levels were normal during admission, your heart rhythm was a normal sinus rhythm, and your heart markers were normal. You did not show evidence of an acute infection during admission If you develop any new or worsening symptoms including fever, chills, sweats, chest pain, chest pressure, difficulty breathing, uncontrolled nausea/vomiting, rash, wheezing, passing out or nearly passing out, bleeding, black/bloody bowel movements, or other new or concerning symptoms please call your primary care physician, or call 911 for re-evaluation in the emergency department if you are very concerned. Total Time Total Time Spent Total Time Spent (In Minutes): Time spend day of discharge 35 minutes including direct patient care, documentation, review of labs and images, and coordination of care. Coding Level of Care Code 83581 INP/OBS DISCH >30 MIN Diagnoses Stroke-like episode R29.90 Hypertensive urgency I16.0 Dementia F03.90 Hypothyroidism E03.9 Abnormality of left ventricular outflow tract Q20.8
--- NOTE | 2025-02-25 11:14 | XCELERA ---
[id number] \\[id number]
[2025-02-25 11:47] VITALS: BP 125/74; TEMP 98.4
[2025-02-25] MEDS ORDERED: METOPROLOL TARTRATE 25 MG TAB PO SCH (12:00)
--- NOTE | 2025-02-25 13:54 | CT Scan Report ---
CT SCAN OF THE BRAIN WITHOUT IV CONTRAST CLINICAL HISTORY: Strokelike symptoms. COMPARISON STUDY: CT of the brain dated 02/24/2025. TECHNIQUE: Unenhanced axial CT scan of the brain is performed from the vertex to the skull base. Imag es are reviewed in the axial, sagittal, coronal planes. A dose lowering technique was utilized adheri ng to the principles of ALARA. FINDINGS: Brain parenchyma: There is age-related involutional change noting [id number] subcortical and pe riventricular microangiopathic disease. There is no hemorrhage, mass effect, or evidence of acute ter ritorial ischemia by CT criteria. Cha-white matter differentiation is preserved. No extra-axial flui d collection is seen. Ventricles, sulci, cisterns: Prominent secondary to involutional change. Intracranial vasculature: There is atherosclerotic calcification of the cavernous carotid arteries. Calvarium: Unremarkable. Sinuses and mastoids: The visualized paranasal sinuses are clear. The mastoid air cells are well pneu matized. Orbits: The bony orbits are grossly intact. There are bilateral ocular lens implants. IMPRESSION: There is no hemorrhage, mass effect, or evidence of acute territorial ischemia by CT adrienne pires. ACT 112: Negative or not required by law. Electronically signed by: Mk Way M.D. 02/25/2025 1:52 PM
--- NOTE | 2025-02-25 14:20 | Billing Data ---
Date of Service February 24, 2025 Coding Level of Care Code 93179 INT INP/OBS CARE
[2025-02-25 14:56] VITALS: PULSE 76
[2025-02-26] MEDS ORDERED: LEVOTHYROXINE SODIUM 50 MCG TABLET PO SCH (06:30)
[2025-02-27] MEDS ORDERED: ROSUVASTATIN CALCIUM 5 MG TAB PO SCH (09:00)
== END 2025-02-25 16:24 | disposition home or self-care (01) ==
LOC: ED 12:25 → 2N 12:25